=== PATIENT | male | born 1945 | race Caucasian/White ===

== ENCOUNTER 2020-09-08 08:49 | Day surgery (SDC) | payer OTHER, SELFPAY ==
[2020-09-05 13:58] LABS: BASOPHIL % 0.5 % (0.2-1.5); PLATELET COUNT 179 x10^3mcL (152-348); RED CELL DISTRIBUTION WIDTH 13.5 % (12.1-16.2)
[2020-09-05 14:15] LABS: ALBUMIN 3.6 g/dL (3.4-5.0); ALKALINE PHOSPHATASE 50 U/L (46-116); ALT/SGPT 31 U/L (16-63); AST/SGOT 21 U/L (15-37); BILIRUBIN TOTAL 0.3 mg/dL (0.20-1.00); CARBON DIOXIDE 21.3 mmol/L (21-32); CHLORIDE SERUM 106 mmol/L (98-107); GLUCOSE SERUM 108 mg/dL (74-106); POTASSIUM SERUM 3.9 mmol/L (3.5-5.1); SODIUM SERUM 141 mmol/L (136-145); TOTAL PROTEIN, SERUM 6.5 g/dL (6.4-8.2)
--- NOTE | 2020-09-05 15:20 | NUR ---
CBC,CMP,EKG COPIES GIVEN TO ANESTHESIA FOR REVIEW.
[~2020-09-08] VITALS: Ht 170.2 cm; Wt 63.5 kg
[2020-09-08 09:00] VITALS: BP 159/100
[2020-09-08 09:58] LABS: CALCIUM 10.6 mg/dL (8.5-10.1); CARBON DIOXIDE 22.2 mmol/L (21-32); CHLORIDE SERUM 108 mmol/L (98-107); GLUCOSE SERUM 109 mg/dL (74-106); POTASSIUM SERUM 3.9 mmol/L (3.5-5.1); SODIUM SERUM 139 mmol/L (136-145)
[2020-09-08 10:03] LABS: CREATININE SERUM 5.3 mg/dL (0.7-1.3)
[2020-09-08 14:49] VITALS: BP 138/88
== END 2020-09-08 14:40 | disposition home or self-care (01) ==
LOC: DS 08:49 → OR 10:00 → DS 14:40
PROVIDERS: ATTEND Surgery
DX: I12.0 Hypertensive chronic kidney disease with stage 5 chronic kidney disease or end stage renal disease (principal); N18.6 End stage renal disease; D63.1 Anemia in chronic kidney disease; K21.9 Gastro-esophageal reflux disease without esophagitis; Z99.2 Dependence on renal dialysis; Z79.899 Other long term (current) drug therapy
CPT/HCPCS: J0690; J1644